=== PATIENT | male | born 1955 | race African-American/Black ===

== ENCOUNTER 2016-12-02 14:43 | Emergency (ER) | payer OTHER, MEDICAID ==
[~2016-12-02 14:43] MED LIST: AMLO10TA2 PO; COUM10TA PO; DOXA1TAB35 PO; GABA800T PO; LANTINJ SQ; LISI-515 PO; NORT25CA PO; NOVOINJ3 SQ; ZOFR4TAB3 SL
[2016-12-02 14:44] VITALS: BP 146/76; PULSE 105; RESP 18; TEMP 97.9; O2SAT 97
--- NOTE | 2016-12-02 14:47 | PD ---
Physical Exam Time Seen by Provider: 14:45 Narrative 61 y/o male fell last night, complaining of L wrist pain, Right sided chest wall pain. Vital signs reviewed. Seen at triage desk. awaiting bed placement. Data Data Last Documented VS Vital Signs Date Time Temp Pulse Resp B/P Pulse Ox O2 Delivery O2 Flow Rate FiO2 12/02/16 14:44 97.9 105 18 146/76 97 MDM Medical Record Reviewed: Yes Supervised Visit with LUCAS: Michael You December 02, 2016 14:47
--- NOTE | 2016-12-02 15:10 | PD ---
HPI Chief Complaint: Fall Time Seen by Provider: 15:10 Travel History International Travel<30 days: No Contact w/Intl Traveler<30days: No Traveled to known affect area: No History of Present Illness HPI 61-year-old male presents to the emergency Department with complaint of right rib cage pain, left hand pain, left knee pain after tripping and falling yesterday. He says he has peripheral neuropathy and is a "fall hazard." He denies hitting his head or loss of consciousness. Denies anticoagulants at this time; He has been off his Coumadin for a few months. Denies neck pain. Reports chronic back pain. Reports no change in back pain. Reports no change in paresthesias to bilateral lower extremities or hands secondary to peripheral neuropathy. Denies loss of sensation, decreased range of motion to all extremities. Has been ambulatory on the affected extremity. Denies chest pain , shortness of breath, abdominal pain. Denies nausea, vomiting, hemoptysis, hematemesis. Denies encopresis, incontinence, saddle anesthesias. Has taken Flexeril and Percocet with no relief of symptoms. Rib cage pain is worse with deep breaths and movement. Knee pain and hand pain is worse with movement and palpation. No known relieving factors. No known allergies. No other modifying factors or associated signs and symptoms. [facility] Past Medical History Hx Anticoagulant Therapy: Yes (WARFARIN) Anxiety: Yes (DX BY [facility]) Depression: Yes (SLIGHT) Cardiac Catheterization: Yes Cardiovascular Problems: Yes (DC X 2) High Cholesterol: No Cerebrovascular Accident: Yes Diabetes: Yes Deep Vein Thrombosis: Yes (LEFT LEG) Endocrine: Yes Gastrointestinal Disorders: No Genitourinary: Yes Hypertension: Yes Immune Disorder: No Implanted Vascular Access Dvce: Yes Musculoskeletal: No Neurologic: Yes (CVA) Psychiatric: Yes Reproductive: No Respiratory: No Myocardial Infarction: Yes Renal Failure: Yes (11/2013) Past Surgical History Eye Surgery: Yes (MULTIPLE) Joint Replacement: Yes (2 PLATES FOUR PINS AND 8 SCREWS RT ANKLE) Other Surgery: Yes (LEFT WRIST REPAIR) Social History Alcohol Use: No Tobacco Use: No Substance Use: No (HX MARIJUANA) Allergies-Medications (Allergen,Severity, Reaction): Coded Allergies: No Known Allergies (Unverified , 12/02/16) Reported Meds & Prescriptions Reported Meds & Active Scripts Active Reported Nortriptyline (Nortriptyline HCl) 25 Mg Cap 25-75 Mg PO HS Doxazosin (Doxazosin Mesylate) 2 Mg Tab 2 Mg PO HS Novolog Flexpen Inj (Insulin Aspart) 300 Unit/3 Ml Pen SQ DIRECTED SLIDING SCALE Lisinopril 20 Mg Tab 20 Mg PO DAILY Lantus Solostar Pen Inj (Insulin Glargine) 300 Unit/3 Ml Pen 50 Units SQ BID Gabapentin 800 Mg Tab 800 Mg PO TID Review of Systems Except as stated in HPI: all other systems reviewed are Neg Physical Exam Narrative GENERAL: Well-nourished, well-developed male patient, in no acute distress SKIN: Warm and dry. HEAD: Atraumatic. Normocephalic. No facial or scalp abrasions or lacerations noted. EYES: Pupils equal and round at 3 mm with brisk reaction. No scleral icterus. No injection or drainage. No raccoon eyes. No orbital tenderness on palpation bilaterally. ENT: Mucosa pink and moist. No erythema or exudates. No uvular edema. No uvular , palatal, or tonsillar deviation. Airway patent. Nares without nasal blood, purulent drainage or septal hematoma. No rhinorrhea. EARS: Bilateral pinnae and external canals appear within normal limits. Bilateral tympanic membranes without erythema, dullness, hemotympanum or perforation. No otorrhea. No ennis signs. NECK: Moving freely. Trachea midline. No lymphadenopathy. Active rotation of the neck greater than 45 left and right. No midline point tenderness on palpation of the cervical spine. No obvious deformities. CHEST: Reproducible tenderness to the right anterior lower rib cage at approximately the eighth and ninth rib; areas without erythema, edema, ecchymosis; without deformity or crepitance. No retractions or use of accessory muscles. CARDIOVASCULAR: Regular rate and rhythm. No murmur appreciated. RESPIRATORY: No accessory muscle use. Clear to auscultation. Breath sounds equal bilaterally. GASTROINTESTINAL: Abdomen soft, non-tender, nondistended. Hepatic and splenic margins not palpable. Bowel sounds are active 4 quadrants. MUSCULOSKELETAL: Left knee is without erythema, edema, ecchymosis; with tenderness on palpation to the patellar aspect; no obvious deformity; with full range of motion and flexion to 90; joint stable with negative drawer test. Left lower extremity is supple and non-tense with 2+ pedal pulses and sensory intact. Left hand with tenderness on palpation to the palmar aspect; areas without erythema, edema, ecchymosis; no obvious deformity; fingers with full range of motion and sensory intact and less than 3 second cap refill. Left upper extremity supple nontender 2+ radial pulses and sensory intact without erythema or edema. No obvious deformities. No clubbing. No cyanosis. No edema. BACK: No midline Point tenderness on palpation of the lumbar or thoracic spine. No obvious deformities. Patient sitting up in bed at 90. NEUROLOGICAL: Awake and alert. Oriented 3. No obvious cranial nerve deficits. Motor grossly within normal limits. Normal speech. No midline drift. No ataxia. Moves all extremities. 5/5 strength to all extremities. Sensory intact. PSYCHIATRIC: Appropriate mood and affect; insight and judgment normal. Data Data Last Documented VS Vital Signs Date Time Temp Pulse Resp B/P Pulse Ox O2 Delivery O2 Flow Rate FiO2 12/02/16 14:44 97.9 105 18 146/76 97 Orders Ketorolac Inj (Toradol Inj) (12/02/16 15:15) Hand, Complete ([id number]) (12/02/16 15:10) Knee, Complete (4vws) (12/02/16 15:10) Chest, Single Ap (12/02/16 15:10) MDM Medical Decision Making Medical Screen Exam Complete: Yes Emergency Medical Condition: Yes Medical Record Reviewed: Yes Differential Diagnosis Fall, Rib contusion, rib fracture, contusion, fracture, sprain Narrative Course 61-year-old male with right rib cage pain, left knee injury, left hand injury after a mechanical fall yesterday. Denies hitting his head or loss of consciousness. Patient currently not on anticoagulants. Denies nausea, vomiting. On physical exam the patient is without raccoon eyes, ennis signs, rhinorrhea, or hemotympanum. I do not suspect open or depressed skull fracture , and the patient has no signs of basilar skull fracture. N[place] CT Head Injury Rule suggests a head CT is not necessary for this patient and clears the patient for head injury without imaging. Denies neck pain. [place] C-Spine Rule suggests the C-Spine can be cleared clinically of fracture, and imaging is not required. There is no midline point tenderness on palpation of the cervical spine. The patient is able to actively rotate the neck 45 left and right. The patient is sitting up in bed at 90. The patient is ambulatory. Toradol administered in the ER. Chest x-ray, left hand x-ray, left knee x-ray ordered. 165: Chest x-ray concludes Bibasilar linear densities consistent with atelectasis and/or fibrotic scarring. Clinical correlation is recommended. Last 24 hours Impressions Knee X-Ray 12/02/16 1510 Signed Impressions: Service Date/Time: Friday, December 02, 2016 15:38 - CONCLUSION: Mild osteoarthritis. No acute abnormality. Robby Burton Jr., MD Hand X-Ray 12/02/160 Signed Impressions: Service Date/Time: Friday, December 02, 2016 15:35 - CONCLUSION: Unremarkable examination of the left hand. Robby Burton Jr., MD Patient does not want crutches for support. Instructed him to use a cane as needed. Riley bandage applied to left hand for compression and support. Patient has prescription for Percocet and Flexeril at home. Patient verbalizes understanding and agreement with treatment plan. Patient is medically cleared and stable for discharge. Discussed reasons to return to the emergency department. Instructed patient to follow up with primary care provider. Patient agrees with treatment plan. The patients vital signs are stable and the patient is stable for outpatient follow-up and treatment. Patient discharged home, stable and in no acute distress. Diagnosis Primary Impression: Fall Qualified Code: W19.XXXA - Fall, initial encounter Additional Impressions: Left knee injury Qualified Code: S89.92XA - Left knee injury, initial encounter Injury of left hand Qualified Code: S69.92XA - Injury of left hand, initial encounter Contusion of rib on right side Qualified Code: S20.211A - Contusion of rib on right side, initial encounter Referrals: Primary Care Physician Patient Instructions: Fall Prevention (ED), General Instructions, Rib Contusion (ED) Additional Instructions: Tylenol or ibuprofen as needed and as directed to reduce pain and inflammation Rest, ice, compress, and elevate extremity to decrease pain and inflammation Knee Brace for support Cane for support Avoid aggravating activity; increase activity as tolerated Follow-up with primary care provider Return to the emergency department immediately with worsening symptoms Med/Other Pt SpecificInfo: No Change to Meds, No Meds Exist/No RX given Disposition: DISCHARGE HOME Condition: Stable Amanda Trujillo December 02, 2016 15:10
[2016-12-02] MEDS ORDERED: KETOROLAC TROMETHAMINE 60 MG/2 ML (IM) VIAL IM ONE (15:15)
--- NOTE | 2016-12-02 15:57 | RADRPT ---
EXAM DATE/TIME: 12/02/2016 15:35 [facility] COMPARISON: No previous studies available for comparison. INDICATIONS : Left hand pain after fall yesterday. MEDICAL HISTORY : None. SURGICAL HISTORY : Prior wrist surgery. ENCOUNTER: Initial ACUITY: 2 days PAIN SCORE: 5/10 LOCATION: Left hand. FINDINGS: Three view examination of the left hand demonstrates no soft tissue swelling, dislocation, or fractur e. The carpal bones appear intact. The interphalangeal and metacarpophalangeal joints are intact. Bony mineralization is normal. CONCLUSION: Unremarkable examination of the left hand. Robby Burton Jr., MD on December 02, 2016 at 15:54 Board Certified Radiologist. This report was verified electronically.
--- NOTE | 2016-12-02 15:58 | RADRPT ---
EXAM DATE/TIME: 12/02/2016 15:38 [facility] COMPARISON: No previous studies available for comparison. INDICATIONS : Left knee pain after fall. MEDICAL HISTORY : None. SURGICAL HISTORY : None. ENCOUNTER: Initial ACUITY: 2 days PAIN SCORE: 8/10 LOCATION: Left knee. FINDINGS: Multiple views of the knee show joint space narrowing with periarticular sclerotic change and mild os teophyte production. No fracture or dislocation. No joint effusion. Soft tissues are unremarkable. CONCLUSION: Mild osteoarthritis. No acute abnormality. Robby Burton Jr., MD on December 02, 2016 at 15:55 Board Certified Radiologist. This report was verified electronically.
--- NOTE | 2016-12-02 16:26 | RADRPT ---
EXAM DATE/TIME: 12/02/2016 15:33 [facility] COMPARISON: CHEST SINGLE AP, January 20, 2015, 23:09. INDICATIONS : Right sided rib pain. Patient fell yesterday. MEDICAL HISTORY : Diabetes mellitus type II. Hypertension SURGICAL HISTORY : None. ENCOUNTER: Initial ACUITY: 2 days PAIN SCORE: 10/10 LOCATION: Bilateral chest FINDINGS: Bibasilar linear densities are noted consistent with discoid atelectasis and/or fibrotic scarring. Th e heart is stable. The pulmonary vascular pattern is normal. No focal alveolar consolidations are no vargas. CONCLUSION: Bibasilar linear densities consistent with atelectasis and/or fibrotic scarring. Clinical correlation is recommended. Mitchell Hermosillo MD on December 02, 2016 at 16:21 Board Certified Radiologist. This report was verified electronically.
== END 2016-12-02 17:13 | disposition home or self-care (01) ==
LOC: NEPK 14:43
DX: S89.92XA Unspecified injury of left lower leg, initial encounter (principal); S20.211A Contusion of right front wall of thorax, initial encounter; S69.92XA Unspecified injury of left wrist, hand and finger(s), initial encounter; I25.2 Old myocardial infarction; I10 Essential (primary) hypertension; E11.9 Type 2 diabetes mellitus without complications; Z86.718 Personal history of other venous thrombosis and embolism; W01.0XXA Fall on same level from slipping, tripping and stumbling without subsequent striking against object, initial encounter; Z91.81 History of falling; Z79.01 Long term (current) use of anticoagulants; Z79.4 Long term (current) use of insulin
CPT/HCPCS: 71010; 73130; 73564; 96372; 99284; J1885

== ENCOUNTER 2016-12-11 13:16 | Emergency (ER) | payer OTHER, MEDICAID ==
[~2016-12-11] VITALS: Ht 182.9 cm; Wt 122.0 kg
[2016-12-11 13:16] VITALS: BP 134/75; PULSE 102; RESP 20; TEMP 97.8; O2SAT 97
[~2016-12-11 13:16] MED LIST changes: -AMLO10TA2 PO; -COUM10TA PO; -ZOFR4TAB3 SL
--- NOTE | 2016-12-11 13:40 | PD ---
Physical Exam Date Seen by Provider: December 11, 2016 Time Seen by Provider: 13:38 Narrative Pt presents with c/o right rib pain. He initially fell over a parking lot curb. He has been seen and evaluated for this injury after it occurred last week. Pt states it hurts to take a deep breath. No new injury. He reports that he's getting over a cold and has been coughing which exacerbated the pain. No fevers. VSS, awaiting bed placement. Data Data Last Documented VS Vital Signs Date Time Temp Pulse Resp B/P Pulse Ox O2 Delivery O2 Flow Rate FiO2 12/11/16 13:16 97.8 102 20 134/75 97 Room Air [facility] Supervised Visit with LUCAS: Keira Hutchinson December 11, 2016 13:40
[2016-12-11] MEDS ORDERED: KETOROLAC TROMETHAMINE 60 MG/2 ML (IM) VIAL IM ONE (14:15)
[2016-12-11] MEDS ORDERED: NAPR500T PO (14:18)
[2016-12-11] MEDS ORDERED: BENZ100 PO (14:19)
--- NOTE | 2016-12-11 14:19 | PD ---
HPI Chief Complaint: Pain: Acute or Chronic Time Seen by Provider: 14:17 Travel History International Travel<30 days: No Contact w/Intl Traveler<30days: No Traveled to known affect area: No History of Present Illness HPI 61-year-old male presents to the emergency Department with complaint of continued right rib cage pain after a fall on December 02 which she has already been evaluated for. I saw this patient on December 02 and chest x-ray was done and concluded no acute findings. The patient has not been taking any medications for his pain. He had originally told me he had Percocet and Flexeril at home which he has not been taking. He said he has been out of his Percocet. He denies hemoptysis, hematemesis. Denies fever, vomiting, abdominal pain. Pain is worse with coughing, sneezing, taking a deep breath. He denies shortness of breath. No known allergies. Has no other medical complaints. No other modifying factors or associated signs and symptoms. PFSH Past Medical History Hx Anticoagulant Therapy: Yes (WARFARIN) Anxiety: Yes (DX BY [facility]) Depression: Yes (SLIGHT) Cardiac Catheterization: Yes Cardiovascular Problems: Yes High Cholesterol: No Cerebrovascular Accident: Yes Diabetes: Yes Patient Takes Glucophage: No Deep Vein Thrombosis: Yes (LEFT LEG) Endocrine: Yes Gastrointestinal Disorders: No Genitourinary: Yes Hypertension: Yes Immune Disorder: No Implanted Vascular Access Dvce: Yes Musculoskeletal: No Neurologic: Yes (CVA) Psychiatric: Yes Reproductive: No Respiratory: Yes Myocardial Infarction: Yes Renal Failure: Yes (11/2013) Past Surgical History Eye Surgery: Yes (MULTIPLE) Joint Replacement: Yes (2 PLATES FOUR PINS AND 8 SCREWS RT ANKLE) Other Surgery: Yes (LEFT WRIST REPAIR) Social History Alcohol Use: No Tobacco Use: No Substance Use: No (HX MARIJUANA) Allergies-Medications (Allergen,Severity, Reaction): Coded Allergies: No Known Allergies (Unverified , 12/11/16) Reported Meds & Prescriptions Reported Meds & Active Scripts Active Tessalon Perles (Benzonatate) 100 Mg Cap 100 Mg PO TID PRN Naproxen 500 Mg Tab 500 Mg PO BID PRN Reported Nortriptyline (Nortriptyline HCl) 25 Mg Cap 25-75 Mg PO HS Doxazosin (Doxazosin Mesylate) 2 Mg Tab 2 Mg PO HS Novolog Flexpen Inj (Insulin Aspart) 300 Unit/3 Ml Pen SQ DIRECTED SLIDING SCALE Lisinopril 20 Mg Tab 20 Mg PO DAILY Lantus Solostar Pen Inj (Insulin Glargine) 300 Unit/3 Ml Pen 50 Units SQ BID Gabapentin 800 Mg Tab 800 Mg PO TID Review of Systems Except as stated in HPI: all other systems reviewed are Neg Physical Exam Narrative GENERAL: Well-nourished, well-developed male patient, in no acute distress; afebrile, nontoxic-appearing SKIN: Warm and dry. HEAD: Atraumatic. Normocephalic. EYES: Pupils equal and round. No scleral icterus. No injection or drainage. ENT: Mucosa pink and moist. NECK: Trachea midline. CHEST: Right lower anterior rib cage with reproducible tenderness on palpation; no crepitance or deformity. Area is without erythema, edema, ecchymosis. No retractions or use of accessory muscles. CARDIOVASCULAR: Regular rate and rhythm. No murmur appreciated. RESPIRATORY: No accessory muscle use. Clear to auscultation. Breath sounds equal bilaterally. GASTROINTESTINAL: Abdomen soft, non-tender, nondistended. Hepatic and splenic margins not palpable. Bowel sounds are active 4 quadrants. MUSCULOSKELETAL: No obvious deformities. No clubbing. No cyanosis. No edema. NEUROLOGICAL: Awake and alert. Oriented 3. No obvious cranial nerve deficits. Motor grossly within normal limits. Normal speech. Moves all extremities. 5/5 strength to all extremities. PSYCHIATRIC: Appropriate mood and affect; insight and judgment normal. Data Data Last Documented VS Vital Signs Date Time Temp Pulse Resp B/P Pulse Ox O2 Delivery O2 Flow Rate FiO2 12/11/16 13:16 97.8 102 20 134/75 97 Room Air Orders Resp Incentive Spirometry (12/11/16 ) Ketorolac Inj (Toradol Inj) (12/11/16 14:15) MDM Medical Decision Making Medical Screen Exam Complete: Yes Emergency Medical Condition: Yes Medical Record Reviewed: Yes Differential Diagnosis Rib contusion, rib fracture, medical clearance Narrative Course 61-year-old male that was seen on December 02 after a fall with continued right lower anterior rib cage pain. He denies new or recent injury. I saw this patient on December 02 and a chest x-ray concluded no acute findings. The patient had originally told me he had Percocet and Flexeril at home and he now states that he was out of the Percocet at the time I saw him. He has not been taking medications for his pain. The pain is worse with coughing, sneezing, deep breathing. There is no crepitance or deformity noted to the area. The patient denies shortness of breath, hemoptysis. The patient is in no acute distress and lung sounds are clear and equal throughout. No retractions or tachypnea. Oxygen saturation is 97% on room air. Heart rate recheck on physical exam is approximately 90 bpm. I do not feel that reimaging is necessary at this time. Toradol administered in the ER. Incentive spirometer ordered for home. Naproxen prescribed for home. Patient does have Flexeril at home and will take as needed. Patient verbalizes understanding and agreement with treatment plan. Patient is medically cleared and stable for discharge. Discussed reasons to return to the emergency department. Instructed patient to follow up with primary care provider. Patient agrees with treatment plan. The patients vital signs are stable and the patient is stable for outpatient follow-up and treatment. Patient discharged home, stable and in no acute distress. Diagnosis Primary Impression: Contusion of rib on right side Qualified Code: S20.211D - Contusion of rib on right side, subsequent encounter Referrals: Primary Care Physician Patient Instructions: General Instructions, How to Use an Incentive Spirometer (ED), Rib Contusion (ED) Additional Instructions: Ibuprofen or Tylenol as directed and as needed to reduce pain Flexeril as prescribed and as needed Heating pad and/or ice to affected area to reduce pain Avoid aggravating activities; increase activity as tolerated Incentive spirometer every 2 hours while awake for deep breathing exercises Follow-up with a primary care provider Return to the emergency department immediately with worsening of symptoms Med/Other Pt SpecificInfo: Prescription(s) given Scripts Benzonatate (Tessalon Perles)100 Mg [id number] Mg PO TID PRN (COUGH) #10 CAP Ref 0 Prov:Amanda Trujillo 12/11/16 Naproxen 500 Mg [id number] Mg PO BID PRN (PAIN SCALE 1 TO 10) #20 TAB Ref 0 Prov:Amanda Trujillo 12/11/16 Disposition: 01 DISCHARGE HOME Condition: Stable Amanda Trujillo December 11, 2016 14:19
== END 2016-12-11 14:52 | disposition home or self-care (01) ==
LOC: NEPK 13:16
DX: S20.211D Contusion of right front wall of thorax, subsequent encounter (principal); Z79.01 Long term (current) use of anticoagulants; W10.1XXD Fall (on)(from) sidewalk curb, subsequent encounter
CPT/HCPCS: 96372; 99283; J1885

== ENCOUNTER → 2017-03-12 | Day surgery (SDC) | payer OTHER, MEDICAID ==
[~2017-03-12] MED LIST changes: +BENZ100 PO; +BUPIVACAINE/EPINEPHRINE 0.25% 50 ML VIAL ONE; +DEXTROSE 5% IN WATE 500 ML INJ 500 ML IV ONE; +KETOROLAC TROMETHAMINE 30 MG/ML (IVP) VIAL IV PUSH ONE; +LACTATED RINGER'S 1000 ML INJ 1,000 ML ONE; +MIDAZOLAM HCL 2 MG/2 ML VIAL ONE; +NAPR500T PO; +ONDANSETRON HCL 4 MG/2 ML VIAL IV PUSH ONE; +PROPOFOL 200 MG/20 ML AMP IV ONE; +ceFAZolin INJ 1,000 MG VIAL ONE
--- NOTE | 2017-03-13 14:14 | MP ---
cc: YADI SANTOS M.D. DATE OF SURGERY: 03/12/2017 PREOPERATIVE DIAGNOSIS Left knee medial meniscus tear. POSTOPERATIVE DIAGNOSIS Left knee medial meniscus tear. PROCEDURE Left knee arthroscopic partial medial meniscectomy. ANESTHESIA General. SURGEON Yadi Santos MD ESTIMATED BLOOD LOSS Minimum. COMPLICATIONS None known. TOURNIQUET TIME None. INDICATION Melquiades Lennon is a 61-year-old male with significant persistent left knee pain and positive findings on MRI for both chondromalacia medial compartment and unstable complex medial meniscus tear. He now presents for arthroscopic surgery. The risks and benefits have thoroughly been discussed. No guarantees have been offered. A detailed informed consent was obtained. PROCEDURE The patient was brought to the operating room, he was placed under general anesthetic. The left lower extremity was prepped and draped in the usual sterile fashion. IV antibiotics were given. Time-out was completed. Inferolateral portal was made with Marcaine and then portal made. Blunt trocar was used to introduce the cannula. The knee was insufflated with saline. Patellofemoral joint did show some diffuse chondromalacia, notch showed normal-appearing ACL. The lateral compartment showed some minimal fraying on the edge of the meniscus and some minimal fraying on the plateau but nothing unstable. Photographs were taken. The medial compartment showed chondromalacia weightbearing portion medial femoral condyle and unstable tear involving the body of the posterior horn of the medial meniscus. Arthroscopic photographs were taken, then we proceeded with arthroscopic partial medial meniscectomy using combination of basket forceps and arthroscopic shaver, smoothed and contoured the medial femoral condyle as well. I addressed the chondromalacia and patellofemoral joint as well, switched over switching stick and came in from the opposite angle to smooth and fine-tune and then back to the regular set up and smoothed and fine-tuned and repeated diagnostic arthroscopy confirming no loose bodies. Arthroscopic equipment was removed. Marcaine was injected. Steri-Strips were applied. Sterile dressing was applied. Riley wrap was applied. The patient was awoken and returned to the recovery room in stable condition. MD SAVAGE Cha/JOSÉ MANUEL /9:21 AM /2:06 PM
== END | disposition home or self-care (01) ==
LOC: ESDC 06:35
PROVIDERS: ATTEND Orthopaedic Surgery Sports Medicine
DX: S83.232A Complex tear of medial meniscus, current injury, left knee, initial encounter (principal); M94.262 Chondromalacia, left knee; E11.9 Type 2 diabetes mellitus without complications; Z79.4 Long term (current) use of insulin
CPT/HCPCS: 01400; 29881; 82948; J0690; J1885; J2250; J2405; J3010; J7060; J7120

== ENCOUNTER 2017-08-09 05:55 | Emergency (ER) | payer OTHER, MEDICAID ==
[~2017-08-09] VITALS: Ht 182.9 cm; Wt 120.0 kg
[~2017-08-09 05:55] MED LIST changes: -BUPIVACAINE/EPINEPHRINE 0.25% 50 ML VIAL ONE; -DEXTROSE 5% IN WATE 500 ML INJ 500 ML IV ONE; -KETOROLAC TROMETHAMINE 30 MG/ML (IVP) VIAL IV PUSH ONE; -LACTATED RINGER'S 1000 ML INJ 1,000 ML ONE; -MIDAZOLAM HCL 2 MG/2 ML VIAL ONE; -NAPR500T PO; +NAPR500T2 PO; -ONDANSETRON HCL 4 MG/2 ML VIAL IV PUSH ONE; -PROPOFOL 200 MG/20 ML AMP IV ONE; -ceFAZolin INJ 1,000 MG VIAL ONE
[2017-08-09 05:58] VITALS: BP 184/86; PULSE 105; RESP 16; TEMP 97.8; O2SAT 96
--- NOTE | 2017-08-09 06:24 | PD ---
HPI Chief Complaint: Respiratory Symptoms Time Seen by Provider: 06:19 Travel History International Travel<30 days: No Contact w/Intl Traveler<30days: No Traveled to known affect area: No History of Present Illness HPI 61-year-old male presents to the emergency department complaining of shortness of breath with cough productive of white sputum 1 week with worsening symptoms with orthopnea and PND 2 days. Patient denies any lower extremity pain or swelling. Patient does have prior history of DVT and is no longer on anticoagulation and has had Acrlos filter placed in the past. Patient does not complain of chest pain except for soreness in the chest with coughing. Patient states that he has had a few episodes of posttussive emesis. No prior history of reactive airways disease COPD or CHF. Patient reports overall pain 10 over 10 in intensity at its worst but presently 2/10 intensity. Patient recently seen by his or scrub tech within the past 4 months and was told that he had "a clean bill of health". Patient denies other concerns or complaints. PFSH Past Medical History Narrative Medical Coumadin therapy DVT Carlos filter CVA diabetes CAD [place] hypertension; no tobacco use; nursing notes reviewed Hx Anticoagulant Therapy: Yes (WARFARIN) Anxiety: Yes (DX BY [facility]) Depression: Yes (SLIGHT) Cardiac Catheterization: Yes Cardiovascular Problems: Yes High Cholesterol: No Cerebrovascular Accident: Yes Diabetes: Yes (METFORMIN, INSULIN ) Patient Takes Glucophage: Yes (METFORMIN) Deep Vein Thrombosis: Yes (LEFT LEG) Endocrine: Yes Gastrointestinal Disorders: No Genitourinary: Yes Hypertension: Yes Immune Disorder: No Implanted Vascular Access Dvce: Yes Musculoskeletal: No Neurologic: Yes (CVA) Psychiatric: Yes Reproductive: No Respiratory: Yes Myocardial Infarction: Yes Renal Failure: Yes (11/2013) Past Surgical History Eye Surgery: Yes (MULTIPLE) Joint Replacement: Yes (2 PLATES FOUR PINS AND 8 SCREWS RT ANKLE) Other Surgery: Yes (LEFT WRIST REPAIR) Social History Alcohol Use: No Tobacco Use: No Substance Use: No (HX MARIJUANA) Allergies-Medications (Allergen,Severity, Reaction): Coded Allergies: No Known Allergies (Unverified Adverse Reaction, Unknown, 08/09/17) Reported Meds & Prescriptions Reported Meds & Active Scripts Active Reported Novolog Flexpen Inj (Insulin Aspart) 300 Unit/3 Ml Pen SQ DIRECTED SLIDING SCALE Lantus Solostar Pen Inj (Insulin Glargine) 300 Unit/3 Ml Pen 50 Units SQ BID Gabapentin 800 Mg Tab 800 Mg PO TID Review of Systems Except as stated in HPI: all other systems reviewed are Neg General / Constitutional: No: Fever, Chills HENT: Positive: Congestion Cardiovascular: Positive: Chest Pain or Discomfort (with cough), No: Diaphoresis Respiratory: Positive: Cough, Shortness of Breath, Wheezing Gastrointestinal: Positive: Vomiting (occasional post tussive emesis) Genitourinary: No: Dysuria, Flank Pain Physical Exam Narrative GENERAL: Well well-developed well-nourished male in no acute distress no respiratory distress GCS 15 intermittently congested cough SKIN: Warm and dry. HEAD: Normocephalic. EYES: No scleral icterus. No injection or drainage. NECK: Supple, trachea midline. No JVD or lymphadenopathy. CARDIOVASCULAR: Increased Regular rate and rhythm without murmurs, gallops, or rubs. RESPIRATORY: Breath sounds equal bilaterally. Diminished breath sounds bilaterally No accessory muscle use. GASTROINTESTINAL: Abdomen soft, non-tender, nondistended. MUSCULOSKELETAL: No cyanosis, or edema. BACK: Nontender without obvious deformity. No CVA tenderness. Data Data Last Documented VS Vital Signs Date Time Temp Pulse Resp B/P (MAP) Pulse Ox O2 Delivery O2 Flow Rate FiO2 08/09/17 06:32 18 98 Nasal Cannula 2.00 08/09/17 05:58 97.8 105 Orders Orders Complete Blood Count With Diff (08/09/17 06:19) Comprehensive Metabolic Panel (08/09/17 06:19) B-Type Natriuretic Peptide (08/09/17 06:19) Act Partial Throm Time (Ptt) (08/09/17 06:19) Prothrombin Time / Inr (Pt) (08/09/17 06:19) Magnesium (Mg) (08/09/17 06:19) Ckmb (Isoenzyme) Profile (08/09/17 06:19) Troponin I (08/09/17 06:19) Influenzae A/B Antigen (08/09/17 06:19) Blood Culture (08/09/17 06:19) Iv Access Insert/Monitor (08/09/17 06:19) Electrocardiogram (08/09/17 06:19) Ecg Monitoring (08/09/17 06:19) Oximetry (1/7/18 06:19) Oxygen Administration (08/09/17 06:19) Chest, Single Ap (08/09/17 06:19) Sodium Chloride 0.9% Flush (Ns Flush) (08/09/17 06:30) Albuterol-Ipratropium Neb (Duoneb Neb) (08/09/17 06:30) Labs Laboratory Tests Test 08/09/17 06:40 White Blood Count 7.6 TH/MM3 Red Blood Count 5.07 MIL/MM3 Hemoglobin 13.7 GM/DL Hematocrit 41.6 % Mean Corpuscular Volume 82.1 FL Mean Corpuscular Hemoglobin 27.1 PG Mean Corpuscular Hemoglobin Concent 33.1 % Red Cell Distribution Width 15.1 % Platelet Count 293 TH/MM3 Mean Platelet Volume 8.4 FL Neutrophils (%) (Auto) 67.5 % Lymphocytes (%) (Auto) 20.9 % Monocytes (%) (Auto) 7.8 % Eosinophils (%) (Auto) 2.8 % Basophils (%) (Auto) 1.0 % Neutrophils # (Auto) 5.1 TH/MM3 Lymphocytes # (Auto) 1.6 TH/MM3 Monocytes # (Auto) 0.6 TH/MM3 Eosinophils # (Auto) 0.2 TH/MM3 Basophils # (Auto) 0.1 TH/MM3 CBC Comment DIFF FINAL Differential Comment MDM Medical Decision Making Medical Screen Exam Complete: Yes Emergency Medical Condition: Yes Medical Record Reviewed: Yes Interpretation(s) EKG: Normal sinus rhythm rate 90 and axis deviation with QS septally age- indeterminate and nonspecific T-wave change laterally no acute ST elevation CXR: FINDINGS: Single AP view of the chest. Patchy opacity at right lung base indicating atelectasis versus mild consolidation. Cardiomediastinal silhouette within normal limits. No evidence of pleural effusion or pneumothorax. CONCLUSION: Atelectasis versus mild consolidation at the medial right lung base. Devante Reyna MD on August 09, 2017 at 6:34 Board Certified Radiologist. This report was verified electronically. Differential Diagnosis Dyspnea, pneumonia, CHF, ACS, influenza, PE Narrative Course Patient placed on monitor and storage bin tender with continuous pulse oximetry specimens collected and sent for resulting @7:15 AM care signed over to oncoming physician Dr. Pablo Meade,Lalitha Forbes MD Aug 09, 2017 06:24
[2017-08-09] MEDS ORDERED: SODIUM CHLORIDE 0.9% FLUSH 10 ML FLUSH IVF PRN (06:30)
[2017-08-09] MEDS ORDERED: RESP: ALBUTEROL 2.5 MG/IPRATROPIUM 0.5 MG NEB (SCH) INH ONE (06:30)
[2017-08-09 06:32] VITALS: RESP 18; O2SAT 98
--- NOTE | 2017-08-09 06:39 | RADRPT ---
EXAM DATE/TIME: 08/09/2017 06:24 [facility] COMPARISON: CHEST SINGLE AP, December 02, 2016, 15:33. INDICATIONS : Shortness of breath. MEDICAL HISTORY : Diabetes mellitus type II. Hypertension SURGICAL HISTORY : None. ENCOUNTER: Initial ACUITY: 1 day PAIN SCORE: 0/10 LOCATION: Bilateral chest FINDINGS: Single AP view of the chest. Patchy opacity at right lung base indicating atelectasis versus mild con solidation. Cardiomediastinal silhouette within normal limits. No evidence of pleural effusion or pne umothorax. CONCLUSION: Atelectasis versus mild consolidation at the medial right lung base. Devante Reyna MD on August 09, 2017 at 6:34 Board Certified Radiologist. This report was verified electronically.
[2017-08-09 07:15] LABS: AUTOMATED NEUTROPHIL # 5.1 TH/MM3 (1.8-7.7); BASOPHIL # 0.1 TH/MM3 (0-0.2); EOSINOPHIL # 0.2 TH/MM3 (0-0.4); EOSINOPHIL % 2.8 % (0.0-4.0); HEMATOCRIT 41.6 % (39.0-51.0); HEMOGLOBIN 13.7 GM/DL (13.0-17.0); LYMPH % 20.9 % (9.0-44.0); LYMPHOCYTE # 1.6 TH/MM3 (1.0-4.8); MEAN CELL VOLUME 82.1 FL (80.0-100.0); MEAN CORPUSCULAR HEMOGLOBIN 27.1 PG (27.0-34.0); MEAN CORPUSCULAR HGB CONC 33.1 % (32.0-36.0); MEAN PLATELET VOLUME 8.4 FL (7.0-11.0); MONO % 7.8 % (0.0-8.0); MONOCYTE # 0.6 TH/MM3 (0-0.9); NEUT % 67.5 % (16.0-70.0); PLATELET COUNT 293 TH/MM3 (150-450); RED BLOOD COUNT 5.07 MIL/MM3 (4.50-5.90); RED CELL DISTRIBUTION WIDTH 15.1 % (11.6-17.2); WHITE BLOOD COUNT 7.6 TH/MM3 (4.0-11.0)
[2017-08-09 07:37] LABS: ALBUMIN 2.4 GM/DL (3.4-5.0); ALT (GPT) 14 U/L (12-78); AST (GOT) 14 U/L (15-37); BICARBONATE 23.3 MEQ/L (21.0-32.0); BLOOD UREA NITROGEN 27 MG/DL (7-18); CHLORIDE 107 MEQ/L (98-107); CREATININE 2.26 MG/DL (0.60-1.30); GLOMERULAR FILTRATION RATE 36 ML/MIN (>89); GLUCOSE,RANDOM 138 MG/DL (74-106); MAGNESIUM 1.8 MG/DL (1.5-2.5); SODIUM (NA) 138 MEQ/L (136-145)
[2017-08-09 07:42] LABS: ALKALINE PHOSPHATASE 90 U/L (45-117); TOTAL BILIRUBIN ADULT 0.2 MG/DL (0.2-1.0); TROPONIN I 0.07 NG/ML (0.02-0.05)
[2017-08-09] MEDS ORDERED: ZITHTAB PO (08:06)
--- NOTE | 2017-08-09 08:09 | PD ---
Data Data Last Documented VS Vital Signs Date Time Temp Pulse Resp B/P (MAP) Pulse Ox O2 Delivery O2 Flow Rate FiO2 08/09/17 06:32 18 98 Nasal Cannula 2.00 08/09/17 05:58 97.8 105 Orders Orders Complete Blood Count With Diff (08/09/17 06:19) Comprehensive Metabolic Panel (08/09/17 06:19) B-Type Natriuretic Peptide (08/09/17 06:19) Act Partial Throm Time (Ptt) (08/09/17 06:19) Prothrombin Time / Inr (Pt) (08/09/17 06:19) Magnesium (Mg) (08/09/17 06:19) Ckmb (Isoenzyme) Profile (08/09/17 06:19) Troponin I (08/09/17 06:19) Influenzae A/B Antigen (08/09/17 06:19) Blood Culture (08/09/17 06:19) Iv Access Insert/Monitor (08/09/17 06:19) Electrocardiogram (08/09/17 06:19) Ecg Monitoring (08/09/17 06:19) Oximetry (08/09/17 06:19) Oxygen Administration (08/09/17 06:19) Chest, Single Ap (08/09/17 06:19) Sodium Chloride 0.9% Flush (Ns Flush) (08/09/17 06:30) Albuterol-Ipratropium Neb (Duoneb Neb) (08/09/17 06:30) CKMB (08/09/17 06:40) CKMB% (08/09/17 06:40) Labs Laboratory Tests Test 08/09/17 06:40 White Blood Count 7.6 TH/MM3 Red Blood Count 5.07 MIL/MM3 Hemoglobin 13.7 GM/DL Hematocrit 41.6 % Mean Corpuscular Volume 82.1 FL Mean Corpuscular Hemoglobin 27.1 PG Mean Corpuscular Hemoglobin Concent 33.1 % Red Cell Distribution Width 15.1 % Platelet Count 293 TH/MM3 Mean Platelet Volume 8.4 FL Neutrophils (%) (Auto) 67.5 % Lymphocytes (%) (Auto) 20.9 % Monocytes (%) (Auto) 7.8 % Eosinophils (%) (Auto) 2.8 % Basophils (%) (Auto) 1.0 % Neutrophils # (Auto) 5.1 TH/MM3 Lymphocytes # (Auto) 1.6 TH/MM3 Monocytes # (Auto) 0.6 TH/MM3 Eosinophils # (Auto) 0.2 TH/MM3 Basophils # (Auto) 0.1 TH/MM3 CBC Comment DIFF FINAL Differential Comment Prothrombin Time 10.0 SEC Prothromb Time International Ratio 1.0 RATIO Activated Partial Thromboplast Time 24.6 SEC Blood Urea Nitrogen 27 MG/DL Creatinine 2.26 MG/DL Random Glucose 138 MG/DL Total Protein 6.0 GM/DL Albumin 2.4 GM/DL Calcium Level 8.0 MG/DL Magnesium Level 1.8 MG/DL Alkaline Phosphatase 90 U/L Aspartate Amino Transf (AST/SGOT) 14 U/L Alanine Aminotransferase (ALT/SGPT) 14 U/L Total Bilirubin 0.2 MG/DL Sodium Level 138 MEQ/L Potassium Level 4.3 MEQ/L Chloride Level 107 MEQ/L Carbon Dioxide Level 23.3 MEQ/L Anion Gap 8 MEQ/L Estimat Glomerular Filtration Rate 36 ML/MIN Total Creatine Kinase 248 U/L Creatine Kinase MB 4.6 NG/ML Troponin I 0.07 NG/ML B-Type Natriuretic Peptide 320 PG/ML MDM Supervised Visit with LUCAS: No Narrative Course This case is checked out to me by Dr. Meade at 7 AM. I have reviewed the entirety of the workup with the patient. I reevaluated him. He clinically feels much better. His chest x-ray suggests atelectasis versus mild infiltrate. Given his multiple chronic diseases including diabetes and chronic renal insufficiency, we 've opted for antibiotic therapy. I wrote him a Z-Robert. His CBC is normal. He has chronic renal insufficiency which she is aware of. Creatinine is 2.2. It was 2.1 last year. History troponin of 0.07 is certainly due to chronic renal insufficiency and not ACS. His EKG shows no acute ST elevation and he has no chest pain He does have respiratory infection symptoms. Recommend primary care follow-up. Diagnosis Primary Impression: Bronchopneumonia Additional Impressions: Diabetes Qualified Codes: E11.9 - Type 2 diabetes mellitus without complications Chronic kidney disease (CKD) stage G3b/A2, moderately decreased glomerular filtration rate (GFR) between 30-44 mL/min/1.73 square meter and albuminuria creatinine ratio between 30-299 mg/g Additional Instruction: The patient was advised to follow up with their physician and return if they worsen. Med/Other Pt SpecificInfo: Prescription(s) given Scripts Azithromycin (Zithromax Z-Robert) 250 Mg Dspk 250 MG PO DIRECTED for Infection, #1 DSPK 0 Refills 500 MG (2 tabs) day 1, then 1 tab days 2-5. Prov: Wilver Shah MD 08/09/17 Disposition: 01 DISCHARGE HOME Condition: Stable Wilver Shah MD Aug 09, 2017 08:09
[2017-08-09 08:23] VITALS: BP 144/78
--- NOTE | 2017-08-09 13:39 | EKG ---
Date Performed: 08/09/2017 Time Performed: 06:33:35 PTAGE: 61 years EKG: LEFT AXIS DEVIATION ATRIAL ABNORMALITY DIFFUSED NONSPECIFIC ST-T CHANGE POOR INITIAL ANTERI OR FORCES V1 AND V2, PROBABLE NORMAL VARIANT Compared to previous tracing, ST-T changes are new, ther e is some loss off R-force in V2, but this may be related to lead placement as V3 appears to have nor mal R-wave. ABNORMAL ECG PREVIOUS TRACING : 01/20/2015 22.48 DOCTOR: Alexis Lucio Interpretating Date/Time 08/09/2017 13:38:47
== END 2017-08-09 08:29 | disposition home or self-care (01) ==
LOC: NEPC 05:55
DX: J18.0 Bronchopneumonia, unspecified organism (principal); R94.31 Abnormal electrocardiogram [ECG] [EKG]; E11.22 Type 2 diabetes mellitus with diabetic chronic kidney disease; I12.9 Hypertensive chronic kidney disease with stage 1 through stage 4 chronic kidney disease, or unspecified chronic kidney disease; N18.9 Chronic kidney disease, unspecified; I25.2 Old myocardial infarction; F32.9 Major depressive disorder, single episode, unspecified; Z86.718 Personal history of other venous thrombosis and embolism; Z86.73 Personal history of transient ischemic attack (TIA), and cerebral infarction without residual deficits
CPT/HCPCS: 71045; 80053; 82550; 82552; 83735; 83880; 84484; 85025; 85610; 85730; 87040; 87804; 93005; 94664; 99285